=== PATIENT | female | born 1990 | race Two or more races ===

== ENCOUNTER 2022-07-04 18:19 | Emergency (ER) | payer OTHER ==
[2022-07-04 18:30] VITALS: BP 132/75; PULSE 70; RESP 18; TEMP 98.6; BMI 26.5
== END 2022-07-04 20:37 | disposition home or self-care (01) ==
LOC: JER 18:19 → JERFT 18:19
DX: G44.209 Tension-type headache, unspecified, not intractable (principal)
CPT/HCPCS: 99283-25